=== PATIENT | female | born 1960 | race African-American/Black ===

== ENCOUNTER 2017-01-02 10:45 | Emergency (ER) | payer MEDICAID ==
[~2017-01-02] VITALS: Ht 165.1 cm; Wt 60.0 kg
[~2017-01-02 10:45] MED LIST: PENI500T PO
[2017-01-02] MEDS ORDERED: MORPHINE SULFATE 4 MG/ML CPJ (NOT FOR IM USE) IV STA (11:28)
[2017-01-02] MEDS ORDERED: SODIUM CHLORIDE 0.9% 1,000 ML IV ONE (11:28)
[2017-01-02 11:59] LABS: BASOPHILS % 0.8 % (0.0-2.0); EOSINOPHILS % 2.5 % (0.0-5.0); HEMATOCRIT. 35.2 % (36.0-48.0); LYMPHOCYTES % 18.1 % (20.0-50.0); MEAN CORPUSCULAR HEMOGLOBIN 34.2 pg (28.0-32.0); MEAN CORPUSCULAR VOLUME 99.7 fL (81.0-99.0); MEAN PLATELET VOLUME 8.5 fl (7.4-10.4); MONOCYTES % 9.4 % (2.0-8.0); NEUTROPHILS % 69.2 % (40.0-76.0); PLATELET 257 x1000/uL (130-400); RED BLOOD CELL COUNT 3.53 mill/uL (4.2-5.4); RED CELL DISTRIBUTION WIDTH 13.6 % (11.6-14.6)
[2017-01-02] MEDS ORDERED: MORPHINE SULFATE 10 MG/ML CPJ IV NR (12:00)
[2017-01-02 12:12] LABS: INR 1.2; PROTHROMBIN TIME 12.3 sec (9.4-11.6)
[2017-01-02 12:16] LABS: CARBON DIOXIDE 28 mEq/L (21-32); CHLORIDE 105 mEq/L (98-107); ETHANOL BLOOD < 10 mg/dL
[2017-01-02 12:20] LABS: HCG SCREEN NEGATIVE
[2017-01-02 12:48] LABS: CLARITY URINE CLEAR (CLEAR); COLOR URINE DARK YELLOW (YELLOW); GLUCOSE URINE NEGATIVE (NEGATIVE); KETONES URINE TRACE (NEGATIVE); LEUKOCYTE ESTERASE URINE NEGATIVE (NEGATIVE); NITRITE URINE NEGATIVE (NEGATIVE); OCCULT BLOOD URINE NEGATIVE (NEGATIVE); PROTEIN URINE 2+ (NEGATIVE); SPECIFIC GRAVITY URINE 1.029 (1.005-1.030)
[2017-01-02 13:00] LABS: *AMPHETAMINES SCREEN URINE NEGATIVE (NEGATIVE); *BARBITURATES SCREEN URINE NEGATIVE (NEGATIVE); *BENZODIAZEPINES SCREEN URINE NEGATIVE (NEGATIVE); *COCAINE SCREEN URINE PRESUMTIVE POSITIVE (NEGATIVE); CANNABINOID URINE SCREEN PRESUMTIVE POSITIVE (NEGATIVE); METHADONE URINE SCREEN NEGATIVE (NEGATIVE); OPIATES URINE SCREEN PRESUMTIVE POSITIVE (NEGATIVE); PHENCYCLIDINE URINE SCREEN PRESUMTIVE POSITIVE (NEGATIVE)
[2017-01-02] MEDS ORDERED: MORPHINE SULFATE 10 MG/ML CPJ IM ONE (15:45)
[2017-01-02] MEDS ORDERED: IOHEXOL-300 100 ML BOTTLE ONE (17:23)
[2017-01-02 21:00] VITALS: BP 161/90
== END 2017-01-02 21:15 | disposition home or self-care (01) ==
LOC: ER 11:13
DX: R10.13 Epigastric pain (principal); R11.2 Nausea with vomiting, unspecified; K76.89 Other specified diseases of liver; F14.10 Cocaine abuse, uncomplicated; F16.10 Hallucinogen abuse, uncomplicated; F12.10 Cannabis abuse, uncomplicated; F10.10 Alcohol abuse, uncomplicated; Y90.0 Blood alcohol level of less than 20 mg/100 ml; F11.10 Opioid abuse, uncomplicated; F17.210 Nicotine dependence, cigarettes, uncomplicated
CPT/HCPCS: 36415; 71010; 74177; 80053; 80305; 81001; 83690; 84703; 85025; 85610; 96361; 96372; 96374; 99285; G0482; J2270; J7030; Q9967; Z7610

== ENCOUNTER 2017-03-08 15:54 | Inpatient (IN) | payer MEDICAID ==
[~2017-03-08] VITALS: Ht 172.7 cm; Wt 55.0 kg
[2017-03-08 21:16] LABS: BASOPHILS % 1.1 % (0.0-2.0); EOSINOPHILS % 1.1 % (0.0-5.0); HEMATOCRIT. 39.9 % (36.0-48.0); HEMOGLOBIN. 13.3 g/dL (12.0-16.0); LYMPHOCYTES % 34.9 % (20.0-50.0); MEAN CORPUSCULAR VOLUME 98.8 fL (81.0-99.0); MEAN PLATELET VOLUME 8.8 fl (7.4-10.4); MONOCYTES % 9.6 % (2.0-8.0); NEUTROPHILS % 53.3 % (40.0-76.0); PLATELET 278 x1000/uL (130-400); RED BLOOD CELL COUNT 4.04 mill/uL (4.2-5.4); RED CELL DISTRIBUTION WIDTH 14.6 % (11.6-14.6)
[2017-03-08 21:19] LABS: INR 1.2; PROTHROMBIN TIME 12.5 sec (9.4-11.6)
[2017-03-08 21:27] LABS: CARBON DIOXIDE 31 mEq/L (21-32); CHLORIDE 103 mEq/L (98-107)
[2017-03-08] MEDS ORDERED: FUROSEMIDE 40MG/4ML VIAL IVP ONE (21:45)
[2017-03-08] MEDS ORDERED: NITROGLYCERIN 0.4MG TABLET SL SL PRN (23:15)
[2017-03-08] MEDS ORDERED: IPRATROPIUM/ALBUTEROL 0.5-3(2.5)MG/3ML NEB INH PRN (23:15)
[2017-03-08] MEDS ORDERED: LORAZEPAM 0.5MG TABLET PO PRN (23:15)
[2017-03-08] MEDS ORDERED: CLONIDINE 0.1MG TABLET PO PRN (23:15)
[2017-03-08] MEDS ORDERED: ACETAMINOPHEN 325MG TABLET PO PRN (23:15)
[2017-03-08] MEDS ORDERED: GUAIFENESIN 200MG/10ML SUGAR FREE UDC PO PRN (23:15)
[2017-03-08] MEDS ORDERED: NA PHOS,M-B/NA PHOS,DI-BA ENEMA 118ML PR PRN (23:15)
[2017-03-08] MEDS ORDERED: MAGNESIUM/ALUMINUM HYDROXIDE/SIMETHICONE 30ML UDC PO PRN (23:15)
[2017-03-08] MEDS ORDERED: ZOLPIDEM TARTRATE 5MG TABLET PO PRN (23:15)
[2017-03-08] MEDS ORDERED: DOCUSATE SODIUM 100MG CAPSULE PO PRN (23:15)
[2017-03-08] MEDS ORDERED: ONDANSETRON HCL 4MG/2ML VIAL IV PRN (23:15)
[2017-03-08] MEDS ORDERED: DIPHENHYDRAMINE 50MG/ML VIAL IV PRN (23:15)
[2017-03-08] MEDS ORDERED: KETOROLAC 15MG/ML VIAL IV PRN (23:15)
[2017-03-09 00:20] LABS: CLARITY URINE CLOUDY (CLEAR); COLOR URINE YELLOW (YELLOW); KETONES URINE TRACE (NEGATIVE); LEUKOCYTE ESTERASE URINE 3+ (NEGATIVE); NITRITE URINE NEGATIVE (NEGATIVE); OCCULT BLOOD URINE 2+ (NEGATIVE); PH URINE 5.5 (4.5-8.0); PROTEIN URINE 1+ (NEGATIVE); SPECIFIC GRAVITY URINE 1.018 (1.005-1.030)
[2017-03-09 00:25] VITALS: BP 122/91
[2017-03-09 00:30] VITALS: BP 122/91
[2017-03-09 00:47] LABS: *AMPHETAMINES SCREEN URINE NEGATIVE (NEGATIVE); *BARBITURATES SCREEN URINE NEGATIVE (NEGATIVE); *BENZODIAZEPINES SCREEN URINE NEGATIVE (NEGATIVE); *COCAINE SCREEN URINE PRESUMTIVE POSITIVE (NEGATIVE); CANNABINOID URINE SCREEN NEGATIVE (NEGATIVE); METHADONE URINE SCREEN NEGATIVE (NEGATIVE); OPIATES URINE SCREEN PRESUMTIVE POSITIVE (NEGATIVE); PHENCYCLIDINE URINE SCREEN PRESUMTIVE POSITIVE (NEGATIVE)
[2017-03-09 04:00] VITALS: BP 126/85
[2017-03-09] MEDS ORDERED: CARV6.2548 PO (05:26)
[2017-03-09] MEDS ORDERED: [UNRECOGNIZED DRUG - CODE] (05:26)
[2017-03-09] MEDS ORDERED: LOSA50TA20 PO (05:26)
[2017-03-09] MEDS ORDERED: INFLUENZA VIRUS VACCINE 0.5ML SYR IM ONE (06:00)
[2017-03-09 06:21] LABS: CREATINE KINASE MB FRACTION 1.8 ng/mL (0.5-3.6); TROPONIN I 0.03 ng/mL (0.00-0.04)
[2017-03-09 08:00] VITALS: BP 121/86
[2017-03-09] MEDS ORDERED: FAMOTIDINE 20MG/2ML VIAL IV SCH (09:00)
[2017-03-09] MEDS ORDERED: SPIRONOLACTONE 25MG TABLET PO SCH (09:00)
[2017-03-09] MEDS ORDERED: ENOXAPARIN 40MG/0.4ML SYR SUBCUT SCH (09:00)
[2017-03-09] MEDS ORDERED: LISINOPRIL 20MG TABLET PO SCH (09:00)
[2017-03-09] MEDS ORDERED: ASPIRIN 325MG EC TABLET PO SCH (09:00)
[2017-03-09] MEDS ORDERED: FUROSEMIDE 40MG/4ML VIAL IVP SCH (09:00)
[2017-03-09] MEDS ORDERED: LEVOFLOXACIN 500MG TABLET PO SCH (11:00)
[2017-03-09 12:00] VITALS: BP 115/83
[2017-03-09 16:25] LABS: CREATINE KINASE 77 IU/L (26-192); CREATINE KINASE MB FRACTION 1.4 ng/mL (0.5-3.6); TROPONIN I < 0.02 ng/mL (0.00-0.04)
[2017-03-09 18:26] VITALS: BP 116/84
[2017-03-14] MEDS ORDERED: ASPI-1159 PO (10:20)
[2017-03-14] MEDS ORDERED: SPIR25TA4 PO (10:21)
[2017-03-14] MEDS ORDERED: FURO20TA4 PO (10:21)
== END 2017-03-09 19:30 | disposition home or self-care (01) | DRG 194 ==
LOC: ER 16:34 → 8WST 22:29 → ENRESERV 23:06
PROVIDERS: ADMIT Internal Medicine; ATTEND Internal Medicine
DX: I11.0 Hypertensive heart disease with heart failure (principal); E44.0 Moderate protein-calorie malnutrition; I42.9 Cardiomyopathy, unspecified; E83.51 Hypocalcemia; E83.52 Hypercalcemia; F17.210 Nicotine dependence, cigarettes, uncomplicated; G89.29 Other chronic pain; F19.10 Other psychoactive substance abuse, uncomplicated; M19.90 Unspecified osteoarthritis, unspecified site; N39.0 Urinary tract infection, site not specified; Z79.899 Other long term (current) drug therapy; Z68.1 Body mass index [BMI] 19.9 or less, adult; I50.33 Acute on chronic diastolic (congestive) heart failure
CPT/HCPCS: 36415; 71045; 73630; 80053; 80061; 80305; 81001; 82550; 82553; 83036; 83880; 84484; 85025; 85610; 87086; 90686; 93005; 93306; 93971; 96374; 99285; J1650; J1885; J1940; J3490

== ENCOUNTER 2018-02-08 13:13 | Inpatient (IN) | payer MEDICAID ==
[~2018-02-08] VITALS: Ht 172.7 cm; Wt 65.8 kg
[2018-02-08 00:30] VITALS: BP 107/63
[~2018-02-08 13:13] MED LIST changes: +ASPI-1159 PO; +CARV6.2548 PO; +FURO20TA4 PO; +LOSA50TA20 PO; -PENI500T PO; +SPIR25TA6 PO
[2018-02-08] MEDS ORDERED: ASPIRIN 81MG TABLET PO ONE (16:45)
[2018-02-08] MEDS ORDERED: IBUPROFEN 600MG TABLET PO ONE (16:45)
[2018-02-08 17:27] LABS: CHLORIDE 104 mEq/L (98-107)
[2018-02-08 17:30] LABS: BASOPHILS % 0.6 % (0.0-2.0); EOSINOPHILS % 2.3 % (0.0-5.0); HEMOGLOBIN. 14.1 g/dL (12.0-16.0); LYMPHOCYTES % 32.7 % (20.0-50.0); MEAN CORPUSCULAR HEMOGLOBIN 34.7 pg (28.0-32.0); MEAN PLATELET VOLUME 8.3 fl (7.4-10.4); MONOCYTES % 6.5 % (2.0-8.0); NEUTROPHILS % 57.9 % (40.0-76.0); PLATELET 220 x1000/uL (130-400); RED BLOOD CELL COUNT 4.06 mill/uL (4.2-5.4); RED CELL DISTRIBUTION WIDTH 14.1 % (11.6-14.6)
[2018-02-08 17:31] LABS: ETHANOL BLOOD < 10 mg/dL
[2018-02-08 17:37] LABS: *AMPHETAMINES SCREEN URINE NEGATIVE (NEGATIVE); *BARBITURATES SCREEN URINE NEGATIVE (NEGATIVE); *BENZODIAZEPINES SCREEN URINE NEGATIVE (NEGATIVE); *COCAINE SCREEN URINE PRESUMTIVE POSITIVE (NEGATIVE)
[2018-02-08 17:38] LABS: CANNABINOID URINE SCREEN PRESUMTIVE POSITIVE (NEGATIVE); METHADONE URINE SCREEN NEGATIVE (NEGATIVE); OPIATES URINE SCREEN PRESUMTIVE POSITIVE (NEGATIVE); PHENCYCLIDINE URINE SCREEN PRESUMTIVE POSITIVE (NEGATIVE)
[2018-02-08 17:43] LABS: D-DIMER 0.22 mg/L FEU (<0.50); PARTIAL THROMBOPLASTIN TIME 22.9 sec (23.4-31.0); PROTHROMBIN TIME 10.2 sec (9.1-11.1)
[2018-02-08] MEDS ORDERED: CLONIDINE 0.1MG TABLET PO PRN (19:30)
[2018-02-08] MEDS ORDERED: GUAIFENESIN 200MG/10ML SUGAR FREE UDC PO PRN (19:30)
[2018-02-08] MEDS ORDERED: ONDANSETRON HCL 4MG/2ML INJ IV PRN (19:30)
[2018-02-08] MEDS ORDERED: ACETAMINOPHEN 325MG TABLET PO PRN (19:30)
[2018-02-08] MEDS ORDERED: MAGNESIUM/ALUMINUM HYDROXIDE/SIMETHICONE 30ML UDC PO PRN (19:30)
[2018-02-08] MEDS ORDERED: DOCUSATE SODIUM 100MG CAPSULE PO PRN (19:30)
[2018-02-08] MEDS ORDERED: HYDROCODONE/ACETAMINOPHEN 5/325MG TABLET PO ONE (19:30)
[2018-02-08] MEDS ORDERED: IPRATROPIUM/ALBUTEROL 0.5-3(2.5)MG/3ML NEB INH PRN (19:30)
[2018-02-08] MEDS ORDERED: LORAZEPAM 1MG TABLET PO PRN (19:30)
[2018-02-08 23:23] VITALS: BP 107/63
[2018-02-08 23:30] VITALS: BP 107/63
[2018-02-09] MEDS: HYDROCODONE/ACETAMINOPHEN 5/325MG TABLET PO PRN ×5 (00:33→21:18)
[2018-02-09 02:26] LABS: CHLORIDE 107 mEq/L (98-107)
[2018-02-09 02:35] LABS: CREATINE KINASE 117 IU/L (26-192)
[2018-02-09 02:38] LABS: CREATINE KINASE MB FRACTION 1.9 ng/mL (0.5-3.6)
[2018-02-09] MEDS ORDERED: FISH1CAP2 PO (02:49)
[2018-02-09 04:00] VITALS: BP 116/69
[2018-02-09 08:00] VITALS: BP 115/69
[2018-02-09 08:03] LABS: BASOPHILS % 0.5 % (0.0-2.0); EOSINOPHILS % 3.5 % (0.0-5.0); HEMATOCRIT. 36.9 % (36.0-48.0); HEMOGLOBIN. 12.6 g/dL (12.0-16.0); LYMPHOCYTES % 41.4 % (20.0-50.0); MEAN CORPUSCULAR HEMOGLOBIN 34.4 pg (28.0-32.0); MEAN CORPUSCULAR VOLUME 100.9 fL (81.0-99.0); MEAN PLATELET VOLUME 8.4 fl (7.4-10.4); MONOCYTES % 10.4 % (2.0-8.0); NEUTROPHILS % 44.2 % (40.0-76.0); PLATELET 203 x1000/uL (130-400); RED BLOOD CELL COUNT 3.66 mill/uL (4.2-5.4); RED CELL DISTRIBUTION WIDTH 13.9 % (11.6-14.6)
[2018-02-09] MEDS: ENOXAPARIN 40MG/0.4ML SYR SUBCUT SCH (08:34)
[2018-02-09] MEDS: THIAMINE HCL 100MG TABLET PO SCH (08:35)
[2018-02-09] MEDS: CLOPIDOGREL 75MG TABLET PO SCH (08:35)
[2018-02-09] MEDS: MULTIVITAMINS,THER W-MINERALS TABLET PO SCH (08:35)
[2018-02-09] MEDS: ASPIRIN 81MG EC TABLET PO SCH (08:35)
[2018-02-09] MEDS: FOLIC ACID 1MG TABLET PO SCH (08:35)
[2018-02-09] MEDS ORDERED: INFLUENZA VIRUS VACCINE(AFLURIA) 0.5ML SYR IM ONE (10:00)
[2018-02-09 11:44] LABS: LDL CHOLESTEROL 96 mg/dL (5-100)
[2018-02-09 11:49] LABS: CREATINE KINASE 105 IU/L (26-192); HDL CHOLESTEROL 72 mg/dL (40-59)
[2018-02-09 11:52] LABS: CREATINE KINASE MB FRACTION 1.3 ng/mL (0.5-3.6)
[2018-02-09 12:00] VITALS: BP 107/64
[2018-02-09] MEDS: AMLODIPINE 2.5MG TABLET PO SCH ×2 (12:00→21:00)
[2018-02-09] MEDS: LOSARTAN POTASSIUM 25 MG TABLET PO SCH (12:00)
[2018-02-09] MEDS: FUROSEMIDE 40MG TABLET PO SCH (13:37)
[2018-02-09] MEDS: SPIRONOLACTONE 25MG TABLET PO SCH (13:37)
[2018-02-09 16:00] VITALS: BP 106/63
[2018-02-09 20:00] VITALS: BP_SYST 94; BP_DIAS 2; BP_DIAS 52
[2018-02-09] MEDS: ZOLPIDEM TARTRATE 5MG TABLET PO PRN (23:03)
[2018-02-10] VITALS: BP 111/75
[2018-02-10 04:00] VITALS: BP 108/67
[2018-02-10] MEDS: HYDROCODONE/ACETAMINOPHEN 5/325MG TABLET PO PRN ×3 (04:15→21:51)
[2018-02-10 07:35] LABS: BASOPHILS % 0.4 % (0.0-2.0); EOSINOPHILS % 2.9 % (0.0-5.0); HEMATOCRIT. 40.6 % (36.0-48.0); HEMOGLOBIN. 13.7 g/dL (12.0-16.0); LYMPHOCYTES % 20.5 % (20.0-50.0); MEAN CORPUSCULAR HEMOGLOBIN 34.1 pg (28.0-32.0); MEAN CORPUSCULAR VOLUME 100.5 fL (81.0-99.0); MEAN PLATELET VOLUME 8.1 fl (7.4-10.4); MONOCYTES % 9.9 % (2.0-8.0); NEUTROPHILS % 66.3 % (40.0-76.0); PLATELET 218 x1000/uL (130-400); RED BLOOD CELL COUNT 4.04 mill/uL (4.2-5.4); RED CELL DISTRIBUTION WIDTH 13.9 % (11.6-14.6)
[2018-02-10 07:40] LABS: CHLORIDE 101 mEq/L (98-107)
[2018-02-10 08:00] VITALS: BP 118/78
[2018-02-10] MEDS: FUROSEMIDE 40MG TABLET PO SCH (08:49)
[2018-02-10] MEDS: AMLODIPINE 2.5MG TABLET PO SCH ×2 (08:49→21:00)
[2018-02-10] MEDS: LOSARTAN POTASSIUM 25 MG TABLET PO SCH (08:50)
[2018-02-10] MEDS: SPIRONOLACTONE 25MG TABLET PO SCH (08:50)
[2018-02-10] MEDS: MULTIVITAMINS,THER W-MINERALS TABLET PO SCH (08:50)
[2018-02-10] MEDS: ASPIRIN 81MG EC TABLET PO SCH (08:50)
[2018-02-10] MEDS: CLOPIDOGREL 75MG TABLET PO SCH (08:50)
[2018-02-10] MEDS: FOLIC ACID 1MG TABLET PO SCH (08:50)
[2018-02-10] MEDS: THIAMINE HCL 100MG TABLET PO SCH (08:50)
[2018-02-10] MEDS: ENOXAPARIN 40MG/0.4ML SYR SUBCUT SCH (08:52)
[2018-02-10 12:00] VITALS: BP 128/75
[2018-02-10 16:00] VITALS: BP 107/66
[2018-02-10 20:00] VITALS: BP 92/60
[2018-02-10] MEDS: ZOLPIDEM TARTRATE 5MG TABLET PO PRN (21:51)
[2018-02-11] VITALS: BP 116/48
[2018-02-11 04:00] VITALS: BP 98/65
[2018-02-11 08:00] VITALS: BP 110/60
[2018-02-11] MEDS: LOSARTAN POTASSIUM 25 MG TABLET PO SCH (09:00)
[2018-02-11] MEDS: AMLODIPINE 2.5MG TABLET PO SCH (09:00)
[2018-02-11] MEDS: HYDROCODONE/ACETAMINOPHEN 5/325MG TABLET PO PRN ×2 (09:45→16:33)
[2018-02-11] MEDS: ENOXAPARIN 40MG/0.4ML SYR SUBCUT SCH (09:45)
[2018-02-11] MEDS: FOLIC ACID 1MG TABLET PO SCH (09:46)
[2018-02-11] MEDS: THIAMINE HCL 100MG TABLET PO SCH (09:46)
[2018-02-11] MEDS: MULTIVITAMINS,THER W-MINERALS TABLET PO SCH (09:46)
[2018-02-11] MEDS: CLOPIDOGREL 75MG TABLET PO SCH (09:46)
[2018-02-11] MEDS: SPIRONOLACTONE 25MG TABLET PO SCH (09:46)
[2018-02-11] MEDS: ASPIRIN 81MG EC TABLET PO SCH (09:46)
[2018-02-11] MEDS: FUROSEMIDE 40MG TABLET PO SCH (09:46)
[2018-02-11] MEDS ORDERED: FOLI-43 PO (15:05)
[2018-02-11] MEDS ORDERED: THIA100T72 PO (15:05)
[2018-02-11] MEDS ORDERED: LOSA25TA3 PO (15:05)
[2018-02-11] MEDS ORDERED: FURO40TA5 PO (15:05)
[2018-02-11] MEDS ORDERED: CLOP75TA16 PO (15:05)
[2018-02-11] MEDS ORDERED: AMLO2.5T45 PO (15:05)
[2018-02-11 16:53] VITALS: BP 103/60
== END 2018-02-11 18:15 | disposition home or self-care (01) | DRG 194 ==
LOC: ER 14:16 → 8WST 18:38 → ENRESERV 20:00 → CANBEDREQ 02-10 19:28
PROVIDERS: ADMIT Internal Medicine; ATTEND Internal Medicine
PROC: 2W3MX1Z Immobilization of Left Lower Extremity using Splint (ICD-10-PCS; principal; 2018-02-08)
DX: I11.0 Hypertensive heart disease with heart failure (principal); N17.9 Acute kidney failure, unspecified; I27.20 Pulmonary hypertension, unspecified; I08.1 Rheumatic disorders of both mitral and tricuspid valves; M94.0 Chondrocostal junction syndrome [Tietze]; I50.22 Chronic systolic (congestive) heart failure; I42.0 Dilated cardiomyopathy; S92.912A Unspecified fracture of left toe(s), initial encounter for closed fracture; S90.32XA Contusion of left foot, initial encounter; F17.210 Nicotine dependence, cigarettes, uncomplicated; I25.10 Atherosclerotic heart disease of native coronary artery without angina pectoris; F41.9 Anxiety disorder, unspecified; J44.9 Chronic obstructive pulmonary disease, unspecified; Z60.2 Problems related to living alone; F14.10 Cocaine abuse, uncomplicated; F12.10 Cannabis abuse, uncomplicated; F16.10 Hallucinogen abuse, uncomplicated; F11.10 Opioid abuse, uncomplicated; F10.10 Alcohol abuse, uncomplicated; Z79.899 Other long term (current) drug therapy; Z79.82 Long term (current) use of aspirin; Z90.49 Acquired absence of other specified parts of digestive tract; Z91.19 Patient's noncompliance with other medical treatment and regimen; Z87.81 Personal history of (healed) traumatic fracture; Y92.89 Other specified places as the place of occurrence of the external cause
CPT/HCPCS: 36415; 71045; 73630; 80048; 80061; 80305; 82550; 82553; 83735; 83880; 84443; 84484; 85379; 90686; 93005; 93306; 93970; 94640; 99285; G0482; J1650; J7620

== ENCOUNTER 2018-04-03 09:43 | Inpatient (IN) | payer MEDICAID ==
[~2018-04-03] VITALS: Ht 172.7 cm; Wt 65.8 kg
[~2018-04-03 09:43] MED LIST changes: +AMLO2.5T45 PO; -CARV6.2548 PO; +CLOP75TA16 PO; +FISH1CAP2 PO; +FOLI-43 PO; -FURO20TA4 PO; +FURO40TA5 PO; +LOSA25TA3 PO; -LOSA50TA20 PO; +THIA100T72 PO
[2018-04-03 10:50] LABS: BASOPHILS % 0.3 % (0.0-2.0); EOSINOPHILS % 1.9 % (0.0-5.0); HEMATOCRIT. 38.4 % (36.0-48.0); LYMPHOCYTES % 17.6 % (20.0-50.0); MEAN CORPUSCULAR HEMOGLOBIN 33.8 pg (28.0-32.0); MEAN CORPUSCULAR VOLUME 99.5 fL (81.0-99.0); MONOCYTES % 9.8 % (2.0-8.0); NEUTROPHILS % 70.4 % (40.0-76.0); PLATELET 207 x1000/uL (130-400); RED BLOOD CELL COUNT 3.86 mill/uL (4.2-5.4); RED CELL DISTRIBUTION WIDTH 13.6 % (11.6-14.6)
[2018-04-03 10:52] LABS: CHLORIDE 108 mEq/L (98-107)
[2018-04-03] MEDS ORDERED: ASPIRIN 81MG TABLET PO ONE (11:15)
[2018-04-03] MEDS ORDERED: IPRATROPIUM/ALBUTEROL 0.5-3(2.5)MG/3ML NEB INH PRN (15:30)
[2018-04-03] MEDS ORDERED: DIPHENHYDRAMINE 50MG/ML VIAL IV PRN (15:30)
[2018-04-03] MEDS ORDERED: DOCUSATE SODIUM 100MG CAPSULE PO PRN (15:30)
[2018-04-03] MEDS ORDERED: MAGNESIUM/ALUMINUM HYDROXIDE/SIMETHICONE 30ML UDC PO PRN (15:30)
[2018-04-03] MEDS ORDERED: ACETAMINOPHEN 325MG TABLET PO PRN (15:30)
[2018-04-03] MEDS ORDERED: CLONIDINE 0.1MG TABLET PO PRN (15:30)
[2018-04-03 16:07] LABS: *AMPHETAMINES SCREEN URINE NEGATIVE (NEGATIVE); *BARBITURATES SCREEN URINE NEGATIVE (NEGATIVE); *BENZODIAZEPINES SCREEN URINE NEGATIVE (NEGATIVE); *COCAINE SCREEN URINE PRESUMTIVE POSITIVE (NEGATIVE)
[2018-04-03 16:08] LABS: CANNABINOID URINE SCREEN PRESUMTIVE POSITIVE (NEGATIVE); METHADONE URINE SCREEN NEGATIVE (NEGATIVE); OPIATES URINE SCREEN NEGATIVE (NEGATIVE); PHENCYCLIDINE URINE SCREEN PRESUMTIVE POSITIVE (NEGATIVE)
[2018-04-03 17:04] LABS: HEPATITIS B SURFACE ANTIGEN NEGATIVE
[2018-04-03 17:34] LABS: HEPATITIS A AB IGM NEGATIVE (NEGATIVE)
[2018-04-03] MEDS: FUROSEMIDE 20MG TABLET PO SCH (22:49)
[2018-04-03] MEDS: LOSARTAN POTASSIUM 25 MG TABLET PO SCH (22:49)
[2018-04-03] MEDS: HYDROCODONE/ACETAMINOPHEN 5/325MG TABLET PO PRN (22:50)
[2018-04-03] MEDS: AMLODIPINE 5MG TABLET PO SCH (22:50)
[2018-04-03] MEDS: GUAIFENESIN 200MG/10ML SUGAR FREE UDC PO PRN (22:51)
[2018-04-03 23:00] VITALS: BP 123/72
[2018-04-04] VITALS: BP 123/72
[2018-04-04] MEDS ORDERED: DEXTROSE 50% WATER 50ML SYRINGE IV PRN (00:15)
[2018-04-04 01:12] LABS: CREATINE KINASE 216 IU/L (26-192)
[2018-04-04 04:00] VITALS: BP 95/53
[2018-04-04] MEDS: GUAIFENESIN 200MG/10ML SUGAR FREE UDC PO PRN (06:33)
[2018-04-04] MEDS: FUROSEMIDE 20MG TABLET PO SCH ×2 (06:33→17:10)
[2018-04-04] MEDS: BLOOD SUGAR DIAGNOSTIC STRIP TEST SCH ×3 (06:34→17:32)
[2018-04-04 07:07] LABS: BASOPHILS % 0.6 % (0.0-2.0); EOSINOPHILS % 2.6 % (0.0-5.0); HEMATOCRIT. 34.4 % (36.0-48.0); HEMOGLOBIN. 11.7 g/dL (12.0-16.0); LYMPHOCYTES % 32.9 % (20.0-50.0); MEAN CORPUSCULAR HEMOGLOBIN 34.1 pg (28.0-32.0); MEAN CORPUSCULAR VOLUME 100.4 fL (81.0-99.0); MEAN PLATELET VOLUME 8.5 fl (7.4-10.4); MONOCYTES % 10.4 % (2.0-8.0); NEUTROPHILS % 53.5 % (40.0-76.0); PLATELET 198 x1000/uL (130-400); RED BLOOD CELL COUNT 3.43 mill/uL (4.2-5.4); RED CELL DISTRIBUTION WIDTH 13.6 % (11.6-14.6)
[2018-04-04 08:00] VITALS: BP 122/69
[2018-04-04] MEDS: INSULIN LISPRO 100 UNITS/ML SUBCUT SCH ×3 (08:10→17:33)
[2018-04-04] MEDS: LOSARTAN POTASSIUM 25 MG TABLET PO SCH (08:48)
[2018-04-04] MEDS: AMLODIPINE 5MG TABLET PO SCH (08:48)
[2018-04-04] MEDS ORDERED: ASPIRIN 81MG EC TABLET PO SCH (09:00)
[2018-04-04] MEDS: HYDROCODONE/ACETAMINOPHEN 5/325MG TABLET PO PRN (09:35)
[2018-04-04 10:09] LABS: CHLORIDE 109 mEq/L (98-107)
[2018-04-04 10:20] LABS: CREATINE KINASE 182 IU/L (26-192); LDL CHOLESTEROL 65 mg/dL (5-100)
[2018-04-04 10:21] LABS: HDL CHOLESTEROL 86 mg/dL (40-59)
[2018-04-04 12:00] VITALS: BP 114/63
[2018-04-04 15:56] VITALS: BP 118/61
[2018-04-04 16:00] VITALS: BP 118/61
[2018-04-05 14:17] LABS: HIV SCREEN 4G Non Reactive (Non Reactive)
== END 2018-04-04 18:55 | disposition home or self-care (01) | DRG 203 ==
LOC: ER 09:43 → 7WST 11:32 → EDBEDREQTM 11:35 → EDBEDREQ 11:35 → ENRESERV 21:08
PROVIDERS: ADMIT Internal Medicine; ATTEND Internal Medicine
DX: M94.0 Chondrocostal junction syndrome [Tietze] (principal); I08.1 Rheumatic disorders of both mitral and tricuspid valves; I27.20 Pulmonary hypertension, unspecified; I42.0 Dilated cardiomyopathy; I50.9 Heart failure, unspecified; E78.5 Hyperlipidemia, unspecified; I11.0 Hypertensive heart disease with heart failure; I25.10 Atherosclerotic heart disease of native coronary artery without angina pectoris; I69.30 Unspecified sequelae of cerebral infarction; J44.9 Chronic obstructive pulmonary disease, unspecified; M19.90 Unspecified osteoarthritis, unspecified site; Z79.82 Long term (current) use of aspirin; Z82.49 Family history of ischemic heart disease and other diseases of the circulatory system; Z90.49 Acquired absence of other specified parts of digestive tract; Z91.19 Patient's noncompliance with other medical treatment and regimen; Z98.1 Arthrodesis status; Z89.029 Acquired absence of unspecified finger(s)
CPT/HCPCS: 36415; 71045; 72040; 73560; 73630; 80061; 80305; 82550; 82962; 83036; 83735; 83880; 84100; 84443; 84484; 85379; 86431; 86705; 86709; 86803; 87340; 87389; 93005; 93306; 93880; 93970; 97162; 97166; 99285

== ENCOUNTER 2018-06-20 08:31 | Emergency (ER) | payer MEDICAID ==
[~2018-06-20] VITALS: Ht 172.7 cm; Wt 64.0 kg
[2018-06-20 08:36] VITALS: BP 155/97
[2018-06-20] MEDS ORDERED: TETANUS, DIPHTHERIA, PERTUSSIS VAC/PF 0.5ML (>7YR OLD) IM ONE (09:00)
[2018-06-20] MEDS ORDERED: ACETAMINOPHEN WITH CODEINE 300/30MG TABLET PO ONE (09:00)
== END 2018-06-20 09:43 | disposition home or self-care (01) ==
LOC: ER 08:31
DX: S01.85XA Open bite of other part of head, initial encounter (principal); S41.151A Open bite of right upper arm, initial encounter; Y04.1XXA Assault by human bite, initial encounter; Y93.89 Activity, other specified; Y92.89 Other specified places as the place of occurrence of the external cause; Z23 Encounter for immunization; I11.0 Hypertensive heart disease with heart failure; I50.9 Heart failure, unspecified; Z79.899 Other long term (current) drug therapy; Z76.0 Encounter for issue of repeat prescription; E78.00 Pure hypercholesterolemia, unspecified
CPT/HCPCS: 90471; 90715; 99283; Z7610

== ENCOUNTER 2018-08-06 08:29 | Inpatient (IN) | payer MEDICAID ==
[~2018-08-06] VITALS: Ht 172.7 cm; Wt 61.2 kg
[~2018-08-06 08:29] MED LIST changes: -ASPI-1159 PO; +ASPI-1393 PO; -CLOP75TA16 PO; +CLOP75TA4 PO
[2018-08-06] MEDS ORDERED: ONDANSETRON 4MG ODT PO ONE (09:45)
[2018-08-06 11:00] LABS: BASOPHILS % 0.3 % (0.0-2.0); EOSINOPHILS % 0.2 % (0.0-5.0); HEMATOCRIT. 35.8 % (36.0-48.0); HEMOGLOBIN. 12.3 g/dL (12.0-16.0); LYMPHOCYTES % 10.8 % (20.0-50.0); MEAN CORPUSCULAR HEMOGLOBIN 33.8 pg (28.0-32.0); MEAN CORPUSCULAR VOLUME 97.9 fL (81.0-99.0); MEAN PLATELET VOLUME 8.4 fl (7.4-10.4); MONOCYTES % 10.4 % (2.0-8.0); NEUTROPHILS % 78.3 % (40.0-76.0); PLATELET 189 x1000/uL (130-400); RED BLOOD CELL COUNT 3.66 mill/uL (4.2-5.4); RED CELL DISTRIBUTION WIDTH 13.3 % (11.6-14.6)
[2018-08-06 11:06] LABS: CHLORIDE 105 mEq/L (98-107)
[2018-08-06] MEDS ORDERED: IPRATROPIUM BROMIDE (0.02%) 0.5MG/2.5ML NEB HHN STA (12:13)
[2018-08-06] MEDS ORDERED: ALBUTEROL (0.083%) 2.5MG/3ML NEB HHN STA (12:13)
[2018-08-06] MEDS ORDERED: METHYLPREDNISOLONE SOD SUCC 125 MG/2 ML VIAL IV STA (12:13)
[2018-08-06] MEDS ORDERED: CEFTRIAXONE 1 G PREMIX 50 ML IV ONE (12:15)
[2018-08-06] MEDS ORDERED: AZITHROMYCIN 500 MG in DEXT 5% WATER 250 ML IV ONE (12:15)
[2018-08-06] MEDS ORDERED: FUROSEMIDE 20MG/2ML VIAL IVP NR (15:00)
[2018-08-06] MEDS ORDERED: IPRATROPIUM/ALBUTEROL 0.5-3(2.5)MG/3ML NEB HHN PRN (15:00)
[2018-08-06] MEDS ORDERED: ONDANSETRON HCL 4MG/2ML INJ IV PRN (15:00)
[2018-08-06] MEDS: ACETAMINOPHEN 325MG TABLET PO PRN (15:49)
[2018-08-06] MEDS: METHYLPREDNISOLONE SOD SUCC 40 MG/ML VIAL IV SCH ×2 (15:50→23:07)
[2018-08-06] MEDS: NICOTINE 14MG PATCH TD SCH (18:10)
[2018-08-06] MEDS: ENOXAPARIN 40MG/0.4ML SYR SUBCUT SCH (18:15)
[2018-08-06 18:30] VITALS: BP 123/62
[2018-08-06 19:24] VITALS: BP 123/62
[2018-08-06] MEDS: IPRATROPIUM/ALBUTEROL 0.5-3(2.5)MG/3ML NEB HHN SCH ×2 (19:58→23:37)
[2018-08-06 20:00] VITALS: BP 114/66
[2018-08-07] VITALS: BP 105/45
[2018-08-07] MEDS: IPRATROPIUM/ALBUTEROL 0.5-3(2.5)MG/3ML NEB HHN SCH ×5 (03:51→21:06)
[2018-08-07 04:00] VITALS: BP 110/56
[2018-08-07] MEDS: ACETAMINOPHEN 325MG TABLET PO PRN ×2 (05:31→12:13)
[2018-08-07] MEDS: METHYLPREDNISOLONE SOD SUCC 40 MG/ML VIAL IV SCH ×3 (06:29→22:22)
[2018-08-07 07:41] LABS: HEMATOCRIT. 36.3 % (36.0-48.0); HEMOGLOBIN. 12.3 g/dL (12.0-16.0); MEAN CORPUSCULAR HEMOGLOBIN 33.8 pg (28.0-32.0); MEAN CORPUSCULAR VOLUME 99.5 fL (81.0-99.0); MEAN PLATELET VOLUME 8.7 fl (7.4-10.4); PLATELET 216 x1000/uL (130-400); RED BLOOD CELL COUNT 3.65 mill/uL (4.2-5.4); RED CELL DISTRIBUTION WIDTH 13.2 % (11.6-14.6)
[2018-08-07 07:42] LABS: CHLORIDE 104 mEq/L (98-107)
[2018-08-07 08:00] VITALS: BP 112/64
[2018-08-07] MEDS: NICOTINE 14MG PATCH TD SCH (08:51)
[2018-08-07] MEDS: AZITHROMYCIN 500 MG TABLET PO SCH (08:51)
[2018-08-07] MEDS: LOSARTAN POTASSIUM 25 MG TABLET PO SCH (08:51)
[2018-08-07 12:00] VITALS: BP 116/68
[2018-08-07] MEDS ORDERED: CEFTRIAXONE 1 G PREMIX 50 ML IV SCH (12:00)
[2018-08-07] MEDS: GUAIFENESIN-DM 200MG-20MG/10ML UDC PO PRN (12:12)
[2018-08-07] MEDS: BENZONATATE 100MG CAPSULE PO SCH ×2 (14:56→22:22)
[2018-08-07 16:00] VITALS: BP 146/71
[2018-08-07] MEDS: HYDROCODONE/ACETAMINOPHEN 5/325MG TABLET PO PRN (17:02)
[2018-08-07] MEDS: ENOXAPARIN 40MG/0.4ML SYR SUBCUT SCH (17:03)
[2018-08-07 19:43] LABS: PLATELET ESTIMATE NORMAL
[2018-08-08] VITALS: BP 130/73
[2018-08-08] MEDS: IPRATROPIUM/ALBUTEROL 0.5-3(2.5)MG/3ML NEB HHN SCH ×7 (01:07→21:29)
[2018-08-08 04:00] VITALS: BP 114/48
[2018-08-08] MEDS: GUAIFENESIN-DM 200MG-20MG/10ML UDC PO PRN ×3 (05:49→14:37)
[2018-08-08] MEDS: HYDROCODONE/ACETAMINOPHEN 5/325MG TABLET PO PRN ×3 (05:51→14:07)
[2018-08-08] MEDS: BENZONATATE 100MG CAPSULE PO SCH (05:54)
[2018-08-08] MEDS: METHYLPREDNISOLONE SOD SUCC 40 MG/ML VIAL IV SCH ×3 (06:06→22:04)
[2018-08-08 07:24] LABS: HEMATOCRIT. 35.9 % (36.0-48.0); HEMOGLOBIN. 12.2 g/dL (12.0-16.0); MEAN CORPUSCULAR HEMOGLOBIN 33.7 pg (28.0-32.0); MEAN PLATELET VOLUME 8.8 fl (7.4-10.4); PLATELET 244 x1000/uL (130-400); RED BLOOD CELL COUNT 3.62 mill/uL (4.2-5.4); RED CELL DISTRIBUTION WIDTH 13.3 % (11.6-14.6)
[2018-08-08 08:58] VITALS: BP 134/73
[2018-08-08] MEDS: AZITHROMYCIN 500 MG TABLET PO SCH (09:14)
[2018-08-08] MEDS: NICOTINE 14MG PATCH TD SCH (09:14)
[2018-08-08] MEDS: LOSARTAN POTASSIUM 25 MG TABLET PO SCH (09:15)
[2018-08-08 11:04] LABS: PLATELET ESTIMATE NORMAL
[2018-08-08 13:07] VITALS: BP 124/65
[2018-08-08] MEDS: POLYETHYLENE GLYCOL 3350 (17GM) 1 DOSE PACK PO SCH (13:56)
[2018-08-08] MEDS: BENZONATATE 200MG CAPSULE PO SCH ×2 (14:08→22:04)
[2018-08-08 15:37] VITALS: BP 155/92
[2018-08-08] MEDS: CEFTRIAXONE 1 G PREMIX 50 ML IV SCH (18:17)
[2018-08-08] MEDS: ENOXAPARIN 40MG/0.4ML SYR SUBCUT SCH (18:24)
[2018-08-08 20:00] VITALS: BP 131/74
[2018-08-08] MEDS: GUAIFENESIN/CODEINE 200-20MG/10ML UDC PO PRN (20:41)
[2018-08-08] MEDS: ZOLPIDEM TARTRATE 5MG TABLET PO PRN (22:04)
[2018-08-09] VITALS (8 sets, daily range): BP systolic 123–158; BP diastolic 70–85
[2018-08-09] MEDS: IPRATROPIUM/ALBUTEROL 0.5-3(2.5)MG/3ML NEB HHN SCH ×5 (00:42→20:25)
[2018-08-09] MEDS: GUAIFENESIN/CODEINE 200-20MG/10ML UDC PO PRN ×3 (02:47→20:11)
[2018-08-09] MEDS: HYDROCODONE/ACETAMINOPHEN 5/325MG TABLET PO PRN ×2 (05:57→15:25)
[2018-08-09] MEDS: BENZONATATE 200MG CAPSULE PO SCH ×3 (05:58→23:24)
[2018-08-09] MEDS: METHYLPREDNISOLONE SOD SUCC 40 MG/ML VIAL IV SCH (06:00)
[2018-08-09 06:29] LABS: HEMATOCRIT. 35.3 % (36.0-48.0); MEAN CORPUSCULAR HEMOGLOBIN 33.7 pg (28.0-32.0); MEAN CORPUSCULAR VOLUME 99.4 fL (81.0-99.0); MEAN PLATELET VOLUME 8.6 fl (7.4-10.4); PLATELET 264 x1000/uL (130-400); RED BLOOD CELL COUNT 3.55 mill/uL (4.2-5.4); RED CELL DISTRIBUTION WIDTH 13.4 % (11.6-14.6)
[2018-08-09] MEDS: NICOTINE 14MG PATCH TD SCH (07:43)
[2018-08-09] MEDS: AZITHROMYCIN 500 MG TABLET PO SCH (07:43)
[2018-08-09] MEDS: POLYETHYLENE GLYCOL 3350 (17GM) 1 DOSE PACK PO SCH (07:43)
[2018-08-09] MEDS: LOSARTAN POTASSIUM 25 MG TABLET PO SCH (07:48)
[2018-08-09] MEDS ORDERED: LACTULOSE 20G/30ML UDC PO SCH (09:00)
[2018-08-09 10:43] LABS: PLATELET ESTIMATE NORMAL
[2018-08-09] MEDS ORDERED: THROAT LOZENGES-BENZOCAINE/MENTH/CETYLPYRD CL LOZENGES MM PRN (15:00)
[2018-08-09] MEDS: ENOXAPARIN 40MG/0.4ML SYR SUBCUT SCH (16:44)
[2018-08-09] MEDS: CEFTRIAXONE 1 G PREMIX 50 ML IV SCH (16:44)
[2018-08-09] MEDS ORDERED: GUAI10LI9 PO (18:00)
[2018-08-09] MEDS ORDERED: P20 MT (18:00)
[2018-08-09] MEDS ORDERED: AZIT500T5 PO (18:00)
[2018-08-09] MEDS ORDERED: BENZ200C52 PO (18:00)
[2018-08-09] MEDS ORDERED: NICO-681 TD (18:00)
[2018-08-09] MEDS ORDERED: P20 PO (18:00)
[2018-08-09] MEDS: ZOLPIDEM TARTRATE 5MG TABLET PO PRN (23:24)
[2018-08-10] VITALS: BP 142/80
[2018-08-10] MEDS: IPRATROPIUM/ALBUTEROL 0.5-3(2.5)MG/3ML NEB HHN SCH ×4 (00:46→12:00)
[2018-08-10 04:00] VITALS: BP 130/85
[2018-08-10] MEDS: BENZONATATE 200MG CAPSULE PO SCH ×2 (06:32→14:00)
[2018-08-10 08:00] VITALS: BP 127/87
[2018-08-10] MEDS ORDERED: PREDNISONE 20MG TABLET PO SCH (08:10)
[2018-08-10] MEDS: AZITHROMYCIN 500 MG TABLET PO SCH (10:02)
[2018-08-10] MEDS: LOSARTAN POTASSIUM 25 MG TABLET PO SCH (10:03)
[2018-08-10] MEDS: NICOTINE 14MG PATCH TD SCH (10:04)
[2018-08-10] MEDS: POLYETHYLENE GLYCOL 3350 (17GM) 1 DOSE PACK PO SCH (10:11)
[2018-08-10] MEDS: ACETAMINOPHEN 325MG TABLET PO PRN (10:11)
[2018-08-10 11:23] VITALS: BP 127/74
== END 2018-08-10 14:50 | disposition home or self-care (01) | DRG 140 ==
LOC: ER 08:49 → 7WST 13:26
PROVIDERS: ADMIT Internal Medicine; ATTEND Internal Medicine
DX: J44.0 Chronic obstructive pulmonary disease with (acute) lower respiratory infection (principal); J96.00 Acute respiratory failure, unspecified whether with hypoxia or hypercapnia; I50.23 Acute on chronic systolic (congestive) heart failure; J18.9 Pneumonia, unspecified organism; I42.9 Cardiomyopathy, unspecified; I11.0 Hypertensive heart disease with heart failure; D72.0 Genetic anomalies of leukocytes; E87.1 Hypo-osmolality and hyponatremia; E83.42 Hypomagnesemia; J44.1 Chronic obstructive pulmonary disease with (acute) exacerbation; F17.210 Nicotine dependence, cigarettes, uncomplicated; Z60.2 Problems related to living alone; K59.00 Constipation, unspecified; F14.10 Cocaine abuse, uncomplicated; J20.9 Acute bronchitis, unspecified; Z79.82 Long term (current) use of aspirin; Z79.899 Other long term (current) drug therapy; Z71.51 Drug abuse counseling and surveillance of drug abuser; Z71.6 Tobacco abuse counseling; Z89.021 Acquired absence of right finger(s); Z90.49 Acquired absence of other specified parts of digestive tract
CPT/HCPCS: 36415; 71045; 80048; 83880; 84484; 94640; 96365; 96368; 96375; 99285; J0456; J0696; J1650; J1940; J2920; J2930; J7050; J7060; J7512; J7611; J7620; Q0162

== ENCOUNTER 2019-04-17 04:27 | Emergency (ER) | payer MEDICAID ==
[~2019-04-17] VITALS: Ht 170.2 cm; Wt 67.0 kg
[~2019-04-17 04:27] MED LIST changes: -AMLO2.5T45 PO; -ASPI-1393 PO; +ASPI-1497 PO; +AZIT500T8 PO; +BENZ200C52 PO; +GUAI10LI9 PO; +NICO-681 TD; +P20 MT; +P20 PO
[2019-04-17] MEDS ORDERED: LIDOCAINE HCL/PF 1% 10 MG/ML 5ML VIAL IJ ONE (09:15)
[2019-04-17] MEDS ORDERED: IBUPROFEN 600MG TABLET PO ONE (09:15)
[2019-04-17] MEDS ORDERED: BACITRACIN ZINC OINT UDPKT TOP ONE (09:15)
[2019-04-17 09:23] LABS: CHLORIDE 105 mEq/L (98-107)
[2019-04-17 09:27] LABS: ETHANOL BLOOD < 10 mg/dL
[2019-04-17 09:31] LABS: BASOPHILS % 0.3 % (0.0-2.0); EOSINOPHILS % 0.5 % (0.0-5.0); HEMATOCRIT. 37.1 % (36.0-48.0); HEMOGLOBIN. 12.6 g/dL (12.0-16.0); LYMPHOCYTES % 16.4 % (20.0-50.0); MEAN CORPUSCULAR VOLUME 99.8 fL (81.0-99.0); MEAN PLATELET VOLUME 7.9 fl (7.4-10.4); MONOCYTES % 7.8 % (2.0-8.0); PLATELET 294 x1000/uL (130-400); RED BLOOD CELL COUNT 3.71 mill/uL (4.2-5.4); RED CELL DISTRIBUTION WIDTH 13.5 % (11.6-14.6)
[2019-04-17 13:35] VITALS: BP 132/76
== END 2019-04-17 13:45 | disposition home or self-care (01) ==
LOC: ER 04:27
DX: S01.81XA Laceration without foreign body of other part of head, initial encounter (principal); S20.212A Contusion of left front wall of thorax, initial encounter; S70.02XA Contusion of left hip, initial encounter; Z79.899 Other long term (current) drug therapy; Z90.49 Acquired absence of other specified parts of digestive tract; Y04.0XXA Assault by unarmed brawl or fight, initial encounter; Y93.89 Activity, other specified; Y92.89 Other specified places as the place of occurrence of the external cause; Y99.8 Other external cause status
CPT/HCPCS: 12011; 36415; 70450; 71101; 73502; 80053; 80320; 84484; 85025; 93005; 99285; J3490; G0480

== ENCOUNTER 2019-06-13 04:01 | Emergency (ER) | payer MEDICAID ==
[~2019-06-13] VITALS: Ht 170.2 cm; Wt 50.0 kg
[2019-06-13 04:05] VITALS: BP 157/130
[2019-06-13] MEDS ORDERED: ACETAMINOPHEN 325MG TABLET PO STA (04:24)
== END 2019-06-13 13:49 | disposition home or self-care (01) ==
LOC: ER 04:01
DX: M79.672 Pain in left foot (principal); M79.671 Pain in right foot; Z59.0 Homelessness; Z79.899 Other long term (current) drug therapy; Z79.82 Long term (current) use of aspirin
CPT/HCPCS: 99283

== ENCOUNTER 2021-05-26 18:38 | Emergency (ER) | payer MEDICAID ==
[~2021-05-26] VITALS: Ht 172.7 cm; Wt 62.0 kg
[~2021-05-26 18:38] MED LIST changes: +CLOP-31 PO; -CLOP75TA4 PO
[2021-05-26] MEDS ORDERED: ALBUTEROL (0.083%) 2.5MG/3ML NEB HHN STA (19:12)
[2021-05-26] MEDS ORDERED: ASPIRIN 325MG EC TABLET PO ONE (19:15)
[2021-05-26] MEDS ORDERED: MORPHINE SULFATE 4 MG/ML CPJ (NOT FOR IM USE) IV ONE (19:15)
[2021-05-26 20:54] LABS: BASOPHILS % 0.5 % (0.0-2.0); EOSINOPHILS % 1.2 % (0.0-5.0); HEMATOCRIT. 34.4 % (36.0-48.0); HEMOGLOBIN. 11.9 g/dL (12.0-16.0); LYMPHOCYTES % 30.9 % (20.0-50.0); MEAN CORPUSCULAR HEMOGLOBIN 34.3 pg (28.0-32.0); MONOCYTES % 8.4 % (2.0-8.0); PLATELET 239 x1000/uL (130-400); RED BLOOD CELL COUNT 3.47 mill/uL (4.2-5.4); RED CELL DISTRIBUTION WIDTH 13.1 % (11.6-14.6)
[2021-05-26 21:02] LABS: CHLORIDE 109 mEq/L (98-107)
[2021-05-26 21:40] LABS: *AMPHETAMINES SCREEN URINE NEGATIVE (NEGATIVE); *BARBITURATES SCREEN URINE NEGATIVE (NEGATIVE); *COCAINE SCREEN URINE PRESUMTIVE POSITIVE (NEGATIVE)
[2021-05-26 21:41] LABS: *BENZODIAZEPINES SCREEN URINE NEGATIVE (NEGATIVE); CANNABINOID URINE SCREEN PRESUMTIVE POSITIVE (NEGATIVE); METHADONE URINE SCREEN NEGATIVE (NEGATIVE); OPIATES URINE SCREEN PRESUMTIVE POSITIVE (NEGATIVE); PHENCYCLIDINE URINE SCREEN PRESUMTIVE POSITIVE (NEGATIVE)
[2021-05-26] MEDS ORDERED: FUROSEMIDE 40MG/4ML VIAL IVP NR (23:45)
[2021-05-27 03:17] VITALS: BP 131/68
== END 2021-05-27 03:30 | disposition short-term general hospital (02) ==
LOC: ER 18:38
DX: R07.89 Other chest pain (principal); F19.10 Other psychoactive substance abuse, uncomplicated; I11.0 Hypertensive heart disease with heart failure; I50.9 Heart failure, unspecified; J44.9 Chronic obstructive pulmonary disease, unspecified; F17.290 Nicotine dependence, other tobacco product, uncomplicated; Z79.899 Other long term (current) drug therapy; Z20.822 Contact with and (suspected) exposure to COVID-19
CPT/HCPCS: 36415; 71045; 80053; 80305; 83880; 84484; 85025; 87426; 93005; 94640; 96374; 96375; 99285; J1940; J2270; Z7610

== ENCOUNTER 2021-07-06 11:51 | Emergency (ER) | payer MEDICAID ==
[~2021-07-06] VITALS: Ht 172.7 cm; Wt 61.0 kg
[2021-07-06] MEDS ORDERED: ACETAMINOPHEN WITH CODEINE 300/30MG TABLET PO ONE (12:15)
[2021-07-06 14:57] VITALS: BP 135/85
[2021-07-06] MEDS ORDERED: T3 PO ×2 (14:57→17:57)
[2021-07-06] MEDS ORDERED: ACET650S25 GT (18:14)
== END 2021-07-06 15:05 | disposition home or self-care (01) ==
LOC: ER 11:51
DX: S93.505A Unspecified sprain of left lesser toe(s), initial encounter (principal); X58.XXXA Exposure to other specified factors, initial encounter; Y93.89 Activity, other specified; Y92.89 Other specified places as the place of occurrence of the external cause; Y99.8 Other external cause status; I11.0 Hypertensive heart disease with heart failure; I50.9 Heart failure, unspecified; Z79.899 Other long term (current) drug therapy
CPT/HCPCS: 73630; 99283